=== PATIENT | female | born 1960 | race Caucasian/White ===

== ENCOUNTER 2018-05-25 11:13 | Observation (INO) | payer OTHER ==
[~2018-05-25] VITALS: Ht 165.1 cm; Wt 79.5 kg
--- NOTE | ~2018-05-25 | HP ---
PATIENT: CHALINO WESLEY MEDICAL RECORD: [id number] ACCOUNT: [id number] LOCATION:[id number] : [id number] ADMISSION DATE: 05/25/18 HISTORY AND PHYSICAL EXAMINATION A 57-year-old female. She will be direct admitted from the office. CHIEF COMPLAINT: Anemia and fatigue. HISTORY OF PRESENT ILLNESS: She is a 57-year-old female with past medical history of hyperlipidemia, depression, hypothyroidism. She also has a history of degenerative osteoarthritis in the knees. She had been seen by orthopedic surgery and evaluated with preop labs pending surgery that was to be scheduled at the end of May. Her preop H&H was low at 9 and 28. She was sent to the office for further evaluation. Here today, her H&H was 8.4 and 26.2. This has compared to previous CBC, which was last done at her regular visit in December which at that point her hemoglobin was 11.7 with hematocrit of 34.4. She was admitted for transfusion as well as GI workup. PAST MEDICAL HISTORY: As above, hyperlipidemia, hypothyroidism, depression, arthritis. HOME MEDICATIONS: Include Tylenol No. 3 p.r.n., aspirin 81 mg daily, atorvastatin 10 mg daily, Lexapro 5 mg daily, fish oil p.r.n., ibuprofen p.r.n., levothyroxine 25 mcg daily, lorazepam p.r.n., vitamin D3 1000 units daily. ALLERGIES: She has no known drug allergies. FAMILY HISTORY: Heart disease in father who also had an ulcer. He had substance abuse with alcohol and COPD. Mother had thyroid issues. SOCIAL HISTORY: She is a former smoker, but quit over 10 years ago. Denies alcohol or drug use. PAST SURGICAL HISTORY: She has a history of a colonoscopy 5 years ago, but no EGD that was done by Dr. Macias. Other surgical history includes tubal ligation and knee surgery. REVIEW OF SYSTEMS: HEENT: No visual or auditory changes, sore throat, rhinorrhea, dysphagia. CONSTITUTIONAL: Does complain of fatigue. CARDIOPULMONARY: Denies any chest pain or shortness of breath. She denies any palpitations. Does get a little short of breath on exertion that she has noted over the last few weeks. She denies any cough or hemoptysis. GASTROINTESTINAL: She denies any bowel habit changes. No melena or hematochezia that she has noted. GENITOURINARY: No hematuria or dysuria. MUSCULOSKELETAL: Denies any joint pains other than the knees at this point. No joint swelling or erythema. PHYSICAL EXAMINATION: VITAL SIGNS: Weight of 135, height 5 feet 6 inches, blood pressure 104/66, pulse 67, respirations 16, temperature 98.2. HEENT: PERRLA, EOMI with pale conjunctivae bilaterally. Pharynx was clear. NECK: Supple. No JVD or adenopathy. HISTORY AND PHYSICAL [id number] CHALINO WESLEY HEART: Had S1 and S2. No murmurs, rubs, or gallops. LUNGS: Clear. No rhonchi, rales, wheezing. ABDOMEN: Soft, nontender, nondistended, normoactive bowel sounds. No organomegaly. EXTREMITIES: She did have pain around the right knee with crepitation. LABORATORY DATA: At this point, hemoglobin of 8.4, hematocrit 26.2. ASSESSMENT AND PLAN: Anemia with some fatigue and likely GI bleed. She has had a little bit of abdominal discomfort on exam with palpation. We are going to consult GI, obviously stop her aspirin and ibuprofen, start her on Protonix. Transfuse 2 units packed red blood cells. We will get a CT abdomen and pelvis for further evaluation and continue other home meds of atorvastatin, levothyroxine, and Lexapro and we will continue to follow clinically. TRANSINT:[id number] Voice Confirmation ID: [id number] DOCUMENT ID: [id number] PANCHO CALVERT DO at 1541 CC: [id number] DICTATION DATE: 05/25/18 1043 MICROBIOLOGY QUALITY CONTROL TECHNICIAN: 05/25/18 1058 ADM IN [place] [id number] [place] [id number]
[2018-05-25 12:11] LABS: BASOPHILS 0.3 % (0-2); EOSINOPHILS 2.2 % (0-7); HEMATOCRIT 26.1 % (36.0-48.0); HEMOGLOBIN 8.6 g/dL (12-16); IMMATURE GRANULOCYTES 0.3 % (0-5); LYMPHOCYTES 47.3 % (15-50); MCH 33.1 pg (26.0-34.0); MCV 100.4 fL (80.0-100.0); MEAN PLATELET VOLUME 9.3 fL (7.4-10.4); MONOCYTES 6.3 % (2-11); NEUTROPHILS 43.6 % (40-80); PLATELET COUNT 198 10x3/uL (130-400); RDW 15.1 % (11.5-14.5); WBC 3.7 10x3/uL (4.8-10.8)
[2018-05-25 12:26] VITALS: Ht 165.1 cm; Wt 79.5 kg
[2018-05-25 12:29] LABS: ALBUMIN 3.7 g/dL (3.4-5.0); ALKALINE PHOSPHATASE 83 U/L (46-116); ALT (SGPT) 27 U/L (10-68); BILIRUBIN - TOTAL 2.02 mg/dL (0.2-1.3); CALC OSMOLALITY 283 mosm/kg (275-300); CALCIUM 8.5 mg/dL (8.5-10.1); CARBON DIOXIDE 26.4 mmol/L (21.0-32.0); CHLORIDE - SERUM 107 mmol/L (98-107); CREATININE - SERUM 0.7 mg/dL (0.6-1.3); GLUCOSE 108 mg/dL (74-106); POTASSIUM - SERUM 4.2 mmol/L (3.5-5.1); PROTEIN - SERUM 6.5 g/dL (6.4-8.2); SODIUM 141 mmol/L (136-145); UREA NITROGEN 17 mg/dL (7-18); eGFR NON AFRICAN AMERICAN > 90 mL/min (90-120)
[2018-05-25 12:33] LABS: APTT 27.1 SECONDS (22.8-39.4); INR 1.05 (0.85-1.17); PROTIME 13.3 SECONDS (11.6-15.0)
[2018-05-25 12:36] LABS: THYROID STIMULATING HORMONE 4.49 uIU/mL (0.36-3.74)
[2018-05-25 20:00] VITALS: BP 120/66
[2018-05-25 21:35] VITALS: BP 114/66
[2018-05-25 21:50] VITALS: BP 112/61
[2018-05-25 22:30] VITALS: BP 93/57
[2018-05-26] VITALS (8 sets, daily range): BP systolic 93–109; BP diastolic 52–59
[2018-05-26] MEDS ORDERED: MUPIROCIN22 GM TOPICAL (04:23)
[2018-05-26] MEDS ORDERED: SYNTHROID25 MCG PO (04:24)
[2018-05-26] MEDS ORDERED: ATIVAN0.5 MG PO (04:24)
[2018-05-26] MEDS ORDERED: NORCO 7.5/325 T1 TA1 PO (04:24)
[2018-05-26] MEDS ORDERED: IBUPROFEN800 MG PO (04:25)
[2018-05-26] MEDS ORDERED: LEXAPRO5 MG PO (04:25)
[2018-05-26] MEDS ORDERED: LIPITOR10 MG PO (04:25)
[2018-05-26 04:48] LABS: BASOPHILS 0.5 % (0-2); EOSINOPHILS 2.3 % (0-7); HEMOGLOBIN 9.8 g/dL (12-16); LYMPHOCYTES 58.1 % (15-50); MCHC 32.7 g/dL (31.0-37.0); MONOCYTES 9.8 % (2-11); NEUTROPHILS 29.3 % (40-80); PLATELET COUNT 212 10x3/uL (130-400); RBC 3.06 10x6/uL (4.00-5.40); RDW 15.8 % (11.5-14.5); WBC 3.9 10x3/uL (4.8-10.8)
[2018-05-26 04:53] LABS: CALC OSMOLALITY 284 mosm/kg (275-300); CALCIUM 8.3 mg/dL (8.5-10.1); CARBON DIOXIDE 28.9 mmol/L (21.0-32.0); CHLORIDE - SERUM 110 mmol/L (98-107); CREATININE - SERUM 0.7 mg/dL (0.6-1.3); GLUCOSE 92 mg/dL (74-106); POTASSIUM - SERUM 4.1 mmol/L (3.5-5.1); SODIUM 144 mmol/L (136-145); eGFR NON AFRICAN AMERICAN > 90 mL/min (90-120)
[2018-05-26 05:14] LABS: UREA NITROGEN 8 mg/dL (7-18)
[2018-05-26 19:00] LABS: HEMATOCRIT 30.6 % (36.0-48.0); HEMOGLOBIN 10.1 g/dL (12-16)
[2018-05-27] VITALS: BP 92/47
[2018-05-27 04:00] VITALS: BP 102/59
[2018-05-27 05:05] LABS: BASOPHILS 0.2 % (0-2); EOSINOPHILS 1.7 % (0-7); HEMATOCRIT 30.9 % (36.0-48.0); HEMOGLOBIN 10.1 g/dL (12-16); LYMPHOCYTES 43.6 % (15-50); MCH 32.2 pg (26.0-34.0); MCHC 32.7 g/dL (31.0-37.0); MCV 98.4 fL (80.0-100.0); MEAN PLATELET VOLUME 9.2 fL (7.4-10.4); MONOCYTES 8.7 % (2-11); NEUTROPHILS 45.8 % (40-80); PLATELET COUNT 217 10x3/uL (130-400); RBC 3.14 10x6/uL (4.00-5.40); RDW 15.6 % (11.5-14.5)
[2018-05-27 05:11] LABS: WBC 5.3 10x3/uL (4.8-10.8)
[2018-05-27 05:24] LABS: ALBUMIN 3.4 g/dL (3.4-5.0); ALKALINE PHOSPHATASE 97 U/L (46-116); ALT (SGPT) 27 U/L (10-68); BILIRUBIN - TOTAL 1.81 mg/dL (0.2-1.3); CALCIUM 8.3 mg/dL (8.5-10.1); CARBON DIOXIDE 27.9 mmol/L (21.0-32.0); CHLORIDE - SERUM 108 mmol/L (98-107); CREATININE - SERUM 0.7 mg/dL (0.6-1.3); GLUCOSE 106 mg/dL (74-106); PROTEIN - SERUM 6.2 g/dL (6.4-8.2); SODIUM 141 mmol/L (136-145); eGFR NON AFRICAN AMERICAN > 90 mL/min (90-120)
[2018-05-27 05:28] LABS: CALC OSMOLALITY 282 mosm/kg (275-300); UREA NITROGEN 17 mg/dL (7-18)
[2018-05-27] MEDS ORDERED: PROTONIX40 MG PO (09:23)
[2018-05-27] MEDS ORDERED: PEPCID20 MG PO (09:23)
[2018-05-27] MEDS ORDERED: CARAFATE1 G/10 ML PO (09:23)
[2018-05-27 10:32] VITALS: BP 131/77
== END 2018-05-27 14:10 | disposition home or self-care (01) ==
LOC: OBSVTIME 11:13 → D.MS 11:13 → UNDOADMIN 11:13 → D.MS 05-27 14:10 → EDSTATUS 06-09 17:00
PROVIDERS: Family Medicine; Internal Medicine Gastroenterology
PROC: 0DB78ZX Excision of Stomach, Pylorus, Via Natural or Artificial Opening Endoscopic, Diagnostic (ICD-10-PCS; 2018-05-26)
PROC: 0DB38ZX Excision of Lower Esophagus, Via Natural or Artificial Opening Endoscopic, Diagnostic (ICD-10-PCS; 2018-05-26)
PROC: 0DB98ZX Excision of Duodenum, Via Natural or Artificial Opening Endoscopic, Diagnostic (ICD-10-PCS; principal; 2018-05-26 08:18)
DX: K25.4 Chronic or unspecified gastric ulcer with hemorrhage (principal); D64.9 Anemia, unspecified; R53.83 Other fatigue; E78.5 Hyperlipidemia, unspecified; F32.9 Major depressive disorder, single episode, unspecified; E03.9 Hypothyroidism, unspecified; K21.0 Gastro-esophageal reflux disease with esophagitis; K29.80 Duodenitis without bleeding; Z87.891 Personal history of nicotine dependence